=== PATIENT | female | born 1980 | race Caucasian/White ===

== ENCOUNTER 2016-04-13 05:10 | Emergency (ER) | payer OTHER ==
--- NOTE | 2016-04-13 07:24 | DIAGNOSTIC IMAGING REPORT ---
PROCEDURE: XR CHEST 2 VIEW INDICATION: FEVER TECHNIQUE: PA and lateral views. COMPARISON: None. FINDINGS: Allowing for overlying wires and electrodes, there are moderate increased parenchymal changes in the right perihilar region. Left lung is clear. Heart and mediastinum are normal. There is a marked levoscoliosis of the lumbar spine with mild compensatory dextroscoliosis of the thoracic spine. IMPRESSION: 1. Moderate increase parenchymal change right perihilar region compatible with pneumonia (e.g., aspiration, bacterial, Mycoplasma). 2. Marked levoscoliosis of the lumbar spine with mild compensatory dextroscoliosis of the thoracic spine. 3. Findings discussed with Dr. Tai.
--- NOTE | 2016-04-13 07:24 | ED NURSING NOTES ---
Clinical Report - Nurses [facility] [address] [place] [address] 04/13/2016 5:12 Patient: NED BALTAZAR TRIAGE Triage time 05:23. Acuity: LEVEL 3. Chief Complaint: RIGHT-SIDED and LEFT-SIDED FLANK PAIN (Fever). 05:35. Alert. SEPSIS SCREEN: Sepsis Screen: negative. Infection suspected/documented. Temperature greater than 38.3 degrees C (101 degrees F). --05:36 Fred Kuo R.N. 05:23 04/13/16. BP: 112/74. HR: 110. RR: 16. O2 saturation: 98%. Temp: 101 F (oral). Pain level now: 09/13. --05:36 Fred Kuo R.N. Weight: 72.5 kg stated. Height/Length: 64 inches Per Patient. BMI: 27.5. --05:32 Fred Kuo R.N. Medications LamoTRIgine Oral (Tablet Dispersible 100 mg) 1 tablet, daily. --05:28 Fred Kuo R.N. PROzac Oral (Capsule 40 mg) 1 capsule, daily. --05:28 Fred Kuo R.N. Medication/allergy information source: the patient. --05:36 Fred Kuo R.N. Allergies No Known Drug Allergy. --05:31 Fred Kuo R.N. History Arrived by private vehicle. Historian: patient. Unaccompanied. Primary physician (Caden GILMAN). Onset. (2 days ago). ( Patient reports being treated for an UTI, and STD's in Feb, then went to [place] [facility] 20 days since being out has developed bilateral flank pain and a fever - is concerned about sepsis). Treatment BARREL RACER: None. PAST MEDICAL HX: Prior sexually transmitted disease history: gonorrhea, chlamydia and trichomonas. Immunizations: up-to-date. Last normal menstrual period- 7 years ago. Uses an intrauterine device. SOCIAL HX: Smoker- current status unknown. Alcohol use. History of drug use. No infectious disease exposure. ABUSE ASSESSMENT: No report of abuse. FALL RISK ASSESSMENT: Fall risk assessment completed. No fall risk identified. NUTRITIONAL RISK ASSESSMENT: The nutritional risk assessment revealed no deficiencies. FUNCTIONAL ASSESSMENT: Functional assessment: no impairments noted. LEARNING NEEDS ASSESSMENT: The learning needs assessment revealed no barriers. SKIN INTEGRITY ASSESSMENT: Skin integrity risk assessment completed. No skin integrity risk identified. --05:36 Fred Kuo R.N. SOCIAL HX: Current every day heavy tobacco smoker- less than 1 pack per day. Occasional alcohol use. History of heavy drug use: heroin, methamphetamines, marijuana. (Patient states she shot up this AM). --05:58 Fred Kuo R.N. PROBLEMS: Scoliosis. Bipolar Disorder. Depression. --05:32 Fred Kuo R.N. Hepatitis. --06:20 Fred Kuo R.N. ADDITIONAL SURGERIES: . --05:32 Fred Kuo R.N. Interventions ID band on patient. To treatment room. --05:36 Fred Kuo R.N. PHYSICAL ASSESSMENT 05:27. Ambulatory to room. GENERAL / NEURO / PSYCH: Alert. Oriented X 4. HEENT: Mucous membranes are pink. RESPIRATORY: Respirations not labored. SKIN: Skin is warm and dry. --05:27 Fred Kuo R.N. NURSING PROGRESS NOTES 05:27. Head of bed elevated. Two patient identifiers checked. Call light placed in reach. Side rails up x 1. Bed placed in lowest position. Brakes of bed on. Patient ready for evaluation- chart flagged. --05:27 Fred Kuo R.N. 05:36 Patient to restroom to provide urine sample. --05:38 Fred Kuo R.N. 06:10 04/13/2016 Site #1 started via IV in the right antecubital space with an 20g angiocath; one attempt. Blood drawn: rainbow set. Labeled in the presence of the patient and sent to the lab. Saline lock flushed with 10 mL saline. --06:16 Fred Kuo R.N. 06:12 04/13/2016 Started bag #1 1000 mL IV Fluids IV NS (Saline); at 1000 mL/hr over 30 minute(s) via site #1 via IV pump. Allergies verified and confirmed 5 rights. IV patency established. IV site checked: no pain, redness, or swelling. IV flushed thoroughly pre- and post-medication administration. --06:17 Fred Kuo R.N. 05:38. Patient ID band checked for patient name and birthdate: patient confirmed. Clean catch urine collected with return of yellow-colored clear urine; sample sent to lab for urinalysis and drug screen. Specimen labeled in the presence of the patient. --06:21 Fred Kuo R.N. <<STRICKEN ENTRY-- 06:22. Patient transported to radiology by stretcher with tech. --06:22 Fred Kuo R.N. --END STRIKE>> Correction --06:22 Fred Kuo R.N. 06:22. Patient transported to radiology by wheelchair with tech. --06:22 Fred Kuo R.N. EKG time: (0605 AM). EKG was ordered, performed by a nurse and shown to the ED physician. Patient waiting for admit bed. --06:27 Clarence Del Toro R.N. 06:32 04/13/2016 Ibuprofen PO 200 mg given. Allergies verified and confirmed 5 rights. --06:37 Fred Kuo R.N. 06:37 04/13/2016 Site #1 removed. Catheter intact. Bandaid and bandage applied (Site 1 infiltrated). --06:48 Fred Kuo R.N. 06:45 04/13/2016 Site #2 started via IV in the left antecubital space with an 20g angiocath, with aseptic technique and good blood return; one attempt. Blood drawn: cultures x2. Labeled in the presence of the patient and sent to the lab. Saline lock flushed with 10 mL saline. --06:48 Fred Kuo R.N. 06:47 IV fluids moved to site # 2. --06:48 Fred Kuo R.N. Care transferred and report given (Nicole ARMANDO). --07:04 Fred Kuo R.N. Cardiac rhythm: sinus rhythm. The patient is calm and resting quietly. SKIN: Skin is warm and dry. Skin color within normal limits. --07:34 Fred Kuo R.N. 07:32 04/13/16. BP: 100/65. HR: 89. RR: 16. O2 saturation: 100% on room air. Temp: 99.5 F (oral). --07:34 Fred Kuo R.N. 07:15 04/13/2016 IV Fluids IV NS via IV site #1 Rate Changed: bag #1 250 mL/hr via IV pump. --07:49 Nicole Aquino R.N. 07:35 04/13/2016 Started 2 gm of Vancomycin IVPB in bag #1 540 mL; at 270 mL/hr over 2 hour(s) via site #2 via IV pump. Allergies verified and confirmed 5 rights. IV patency established. IV site checked: no pain, redness, or swelling. IV flushed thoroughly pre- and post-medication administration. --07:35 Fred Kuo R.N. 07:36 04/13/2016 Levaquin (Levofloxacin) PO 750 mg given. Allergies verified and confirmed 5 rights. --07:36 Fred Kuo R.N. ( Introduction to pt on shift change, pt playing video games. Pt alert, cooperative and polite. Monitoring VS. IV site unremarkable. Awaiting Vanco meds from Pharmacy.). --07:49 Nicole Aquino R.N. 07:49 04/13/16. Temp: 99.6 F. --07:49 Nicole Aquino R.N. Call light placed in reach. --07:49 Nicole Aquino R.N. ( H/p forms on chart,). --08:33 Leonela Dial ER Tech1 ( Hospitalist here to see pt. IV site unremarkable.). --09:02 Nicole Aquino R.N. ( Vanc infusing without difficulty.). --09:02 Nicole Aquino R.N. PELVIC EXAM: Pelvic exam performed by ED physician (Dr. Lindsay). Assisted by one nurse (Nicole, RN). Preparation: pelvic tray. Procedure: speculum exam. Specimens collected and sent to lab: GC, chlamydia and wet prep. Status post-procedure: she was stable. Total time of assist / procedure: 15 minutes. --11:02 Nicole Aquino R.N. ( With extensive conversation with patient, Dr. Tai, and Nicole, RN, pt has requested to smoke, informed of hospital policy and offered a Nicotine Patch. Pt refused. Pt stated she wanted to "sneak out and have a smoke". Security informed of pt's risk, pt has an IV in place and has admitted to IV drug use and is being admitted for infection related to IV drug use. Pt is at high risk for using while off the premises. Pt's request denied. Pt stated she didn't like the "other Dr" that came to see her. Dr. Grimes was the Hospitalist. Pt also stated, "I'm just not ready to do this, I can't stay". Pt informed by ER MD and RN of risk of leaving, worsening condition, risk of . Pt says, "I'm not going to ozuna today".). --11:08 Nicole Aquino R.N. 09:35 04/13/2016 Vancomycin IVPB Discontinued: infused. Total amount infused: 500 mL. --11:09 Nicole Aquino R.N. 09:35 04/13/2016 IV Fluids IV NS Discontinued: bag #1 infused. Total amount infused: 1000 mL. IV patency established. IV site checked: no pain, redness, or swelling. IV flushed thoroughly. --11: Nicole Aquino R.N. 11:08 04/13/2016 Site #2 removed upon discharge. Pressure dressing applied. --11:08 Nicole Aquino R.N. DISPOSITION / DISCHARGE The patient left the Emergency Department against medical advice and without completion of treatment. The patient appears to be alert, oriented x4 and coherent. She notified the ED staff prior to leaving the department and stated is leaving the ED due to personal reasons. Notified the ED physician and charge nurse of patient departure. Prior to leaving the ED, she was advised to stay for completion of treatment and return if needed. She was informed of the risks of leaving and verbalized understanding of these risks. Patient signed form prior to leaving. She left the Emergency Department ambulatory and via bus. --11:10 Nicole Aquino R.N. Departure time: 10:40 Apr 13 2016. --11:10 Nicole Aquino R.N. Locked/Released at 04/13/2016 11:11 by Nicole Aquino R.N.
--- NOTE | 2016-04-13 07:24 | ED ORDER SUMMARY ---
..... Patient: NED BALTAZAR OrderSheet [facility] VisitID: [id number] [address] [place] [address] 36y, F Registration Date/Time: 04/13/2016 ORDER SHEET Weight: 72.5 kg (stated) Allergies: No Known Drug Allergy GENERAL ORDERS: UA-Culture if indicated Urgent (05:04/13/2016 PHutchinson DO) (Ack 5:30 CHategekimana) (6:17 JQuivey R.N.) Urine Urgent (05:04/13/2016 PHutchinson DO) (Ack 5:30 CHategekimana) (6:17 JQuivey R.N.) Urine Drug Screen Urgent ([facility]2016 [facility] (Ack 5:50 CHategekimana) (6:17 JQuivey R.N.) Chest 2V Urgent (05:04/13/2016 PHncchinson DO) (Ack 5:51 CHategekimana) (6:54 GUnger) Yard Rigger (Continuous) (05:04/13/2016 [facility]) (Ack 5:50 CHategekimana) (6:17 JQuivey R.N.) Blood Culture (No) (N/A) Urgent (05:04/13/2016 PHutchinson DO) (Ack 5:51 CHategekimana) (6:18 JQuivey R.N.) GC/Chlamydia, Urine (Urine, Clean Catch) (dirty catch) Urgent (05:33 04/13/2016 PHutchinson DO) (Ack 5:51 CHategekimana) (6:18 JQuivey R.N.) Cardiac Panel Stat (05:04/13/2016 PHncchinson DO) (Ack 5:50 CHategekimana) (6:17 JQuivey R.N.) BNP Urgent (05:04/13/2016 PHncchinson DO) (Ack 5:50 CHategekimana) (6:17 JQuivey R.N.) Amylase [facility] (Ack 5:50 CHategekimana) (6:17 JQuivey R.N.) PT with INR Urgent (05:34 04/13/2016 [facility] DO) (Ack 5:50 CHategekimana) (6:17 JQuivey R.N.) TSH Urgent (05:04/13/[facility] (Ack 5:51 CHategekimana) (6:17 JQuivey R.N.) ESR Urgent (05:04/13/2016 [facility] DO) (Ack 5:51 CHategekimana) (6:17 JQuivey R.N.) CRP Urgent (05:04/13/2016 [facility] DO) (Ack 5:51 CHategekimana) (6:18 JQuivey R.N.) Pulse oximeter (05:04/13/2016 [facility] ) (Ack 5:50 CHategekimana) (6:17 JQuivey R.N.) EKG - ER Stat (05:04/13/2016 [facility] DO) (Ack 5:50 CHategekimana) (6:17 JQuivey R.N.) Vitals (05:04/13/2016 [facility] DO) (5:40 JQuivey R.N.) Old Records (from [facility]) (05:35 04/13/2016 [facility] DO) (Ack 5:51 CHategekimana) (8:12 LNations ER Tech1) Call (Place call to): (hospitalist) (07:24 04/13/2016 [facility] DO) (8:38 LNations ER Tech1) GC/Chlamydia (Cervix) (cervical) Urgent (09:32 04/13/2016 [facility] DO) (Ack 10:23 LNations ER Tech1) Wet Prep (Vaginal) (vaginal ) Urgent (09:32 04/13/2016 [facility] DO) (Ack 10:23 LNations ER Tech1) MEDICATION ORDERS: Ibuprofen PO 200 mg (NOW) (06:25 04/13/2016 [facility]) (Ack 6:26 JQuivey R.N.) (6:37 JQuivey R.N.) Levaquin PO 750 mg (NOW) (07:23 04/13/2016 [facility]) (7:36 JQuivey R.N.) IV FLUIDS: IV NS : initial bolus 500 mL (1000 mL/hr), then 250 mL/hr for X4 (NOW) (05:33 04/13/2016 [facility]) (6:17 JQuivey R.N.) Vancomycin IV 2 gm/500 mL (after blood cultues) (06:25 04/13/2016 [facility]) (Ack 6:26 JQuivey R.N.) (7:35 JQuivey R.N.) ORDER SHEET NOTES: [Electronically signed by Nicole Aquino R.N. (11:11 04/13/2016)] [Electronically signed by Sage Tai DO (07:26 04/14/2016)] [Electronically locked/signed by Nicole Aquino R.N. (11:11 04/13/2016)]
--- NOTE | 2016-04-13 07:24 | ED ORDER SUMMARY ---
..... Patient: NED BALTAZAR OrderSheet [facility] VisitID: [id number] [address] [place] [address] 36y, F Registration Date/Time: 04/13/2016 ORDER SHEET Weight: 72.5 kg (stated) Allergies: No Known Drug Allergy GENERAL ORDERS: UA-Culture if indicated Urgent (05:04/13/2016 PHutchinson DO) (Ack 5:30 CHategekimana) (6:17 JQuivey R.N.) Urine Urgent (05:04/13/2016 PHutchinson DO) (Ack 5:30 CHategekimana) (6:17 JQuivey R.N.) Urine Drug Screen Urgent (05:04[facility]13/2016 [facility] (Ack 5:50 CHategekimana) (6:17 JQuivey R.N.) Chest 2V Urgent (05:04/13/2016 PHnechinson DO) (Ack 5:51 CHategekimana) (6:54 GUnger) Institutional Research Director (Continuous) (05:04/13/2016 [facility]) (Ack 5:50 CHategekimana) (6:17 JQuivey R.N.) Blood Culture (No) (N/A) Urgent (05:04/13/2016 PHutchinson DO) (Ack 5:51 CHategekimana) (6:18 JQuivey R.N.) GC/Chlamydia, Urine (Urine, Clean Catch) (dirty catch) Urgent (05:33 04/13/2016 PHutchinson DO) (Ack 5:51 CHategekimana) (6:18 JQuivey R.N.) Cardiac Panel Stat (05:04/13/2016 PHnechinson DO) (Ack 5:50 CHategekimana) (6:17 JQuivey R.N.) BNP Urgent (05:04/13/2016 PHnechinson DO) (Ack 5:50 CHategekimana) (6:17 JQuivey R.N.) Amylase Urgent (05:04/13/2016 [facility]) (Ack 5:50 CHategekimana) (6:17 JQuivey R.N.) PT with INR Urgent (05:34 04/13/2016 [facility] DO) (Ack 5:50 CHategekimana) (6:17 JQuivey R.N.) TSH Urgent (05:04/13/2016 [facility] DO) (Ack 5:51 CHategekimana) (6:17 JQuivey R.N.) ESR Urgent (05:04/13/2016 [facility] DO) (Ack 5:51 CHategekimana) (6:17 JQuivey R.N.) CRP Urgent (05:04/13/2016 [facility] DO) (Ack 5:51 CHategekimana) (6:18 JQuivey R.N.) Pulse oximeter (05:04/13/2016 [facility] ) (Ack 5:50 CHategekimana) (6:17 JQuivey R.N.) EKG - ER Stat (05:04/13/2016 [facility] DO) (Ack 5:50 CHategekimana) (6:17 JQuivey R.N.) Vitals (05:04/13/2016 [facility] DO) (5:40 JQuivey R.N.) Old Records (from [facility]) (05:35 04/13/2016 [facility] DO) (Ack 5:51 CHategekimana) (8:12 LNations ER Tech1) Call (Place call to): (hospitalist) (07:24 04/13/2016 [facility] DO) (8:38 LNations ER Tech1) GC/Chlamydia (Cervix) (cervical) Urgent (09:32 04/13/2016 [facility] DO) (Ack 10:23 LNations ER Tech1) Wet Prep (Vaginal) (vaginal ) Urgent (09:32 04/13/2016 [facility] DO) (Ack 10:23 LNations ER Tech1) MEDICATION ORDERS: Ibuprofen PO 200 mg (NOW) (06:25 04/13/2016 [facility]) (Ack 6:26 JQuivey R.N.) (6:37 JQuivey R.N.) Levaquin PO 750 mg (NOW) (07:23 04/13/2016 [facility]) (7:36 JQuivey R.N.) IV FLUIDS: IV NS : initial bolus 500 mL (1000 mL/hr), then 250 mL/hr for X4 (NOW) (05:33 04/13/2016 [facility]) (6:17 JQuivey R.N.) Vancomycin IV 2 gm/500 mL (after blood cultues) (06:25 04/13/2016 [facility]) (Ack 6:26 JQuivey R.N.) (7:35 JQuivey R.N.) ORDER SHEET NOTES: [Electronically signed by Nicole Aquino R.N. (11:11 04/13/2016)] [Electronically signed by Sage Tai DO (07:26 04/14/2016)] [Electronically locked/signed by Nicole Aquino R.N. (11:11 04/13/2016)]
--- NOTE | 2016-04-13 07:24 | ED CLINICAL REPORT ---
Clinical Report - Physicians/Mid Levels [facility] [address] [place] [address] 04/13/2016 5:12 Patient: NED BALTAZAR Time Seen: 05:16. Arrived- By private vehicle. Historian- patient. HISTORY OF PRESENT ILLNESS Chief Complaint: DYSURIA. This started about 2 1/2 weeks ago and still present. It was gradual in onset and has been waxing/waning. The symptoms are described as moderate. Modifying factors- worsened by urination. Relieved by rest. The patient has had abdominal pain, pelvic pain, lower back pain, flank pain and a vaginal discharge. She has had pain with urination and urgency of urination. The patient has had urinary frequency. Sexually active. Similar symptoms previously: Recent medical care: The patient was seen recently at another facility in a clinic. ( Pt was given an antibiotic for UTI, GC, Chlamydia and Trichomoniasis - she did not fill her Rx (at least 2 prior Rx's that she did not fill)). REVIEW OF SYSTEMS No vomiting, diarrhea, black stools, sore throat or cough. No difficulty breathing. She has had fever and skin rash located on the face. All systems otherwise negative, except as recorded above. PAST HISTORY See nurses notes. ( PCP: [facility] ([facility])). Sexually transmitted disease: gonorrhea; chlamydia; trichomonas ("got a shot" about 2 weeks ago at at clinic in [place], but did not take the prescribed antibiotics). Type C hepatitis. Scoliosis. Bipolar disorder. Depression. Substance abuse (heroin, methamphetamines) (recently stopped suboxone - per [facility], last Rx was on 02-27-2016 for #10). Surgeries: Adenoidectomy. has been performed twice. Tonsillectomy. Medications: PROzac Oral (Capsule 40 mg) 1 capsule, daily. LamoTRIgine Oral (Tablet Dispersible 100 mg) 1 tablet, daily. Allergies: No Known Drug Allergy. SOCIAL HISTORY Smoker- current status unknown. Occasional alcohol use. Patient is alcoholic. History of IV drug use. Recently (about 1 month ago) released from assisted. FAMILY HISTORY Heart disease in first-degree relative (father); emphysema in grandparent; cancer in grandparent. ADDITIONAL NOTES The nursing notes have been reviewed. PHYSICAL EXAM Vital Signs: 04/13/2016 05:23 BP: 112/74. HR: 110. RR: 16. O2 saturation: 98%. Temp: 101 F. Pain level now: 7/10. Appearance: Alert. Oriented X3. Patient in mild distress. HEENT: Normal external inspection. Eyes: No scleral icterus or pale conjunctivae. ENT: No hearing deficit. Neck: Neck supple. CVS: Heart sounds normal. Respiratory: No respiratory distress. Breath sounds normal. Abdomen: Soft and nontender. Back: Moderate CVA tenderness on the right and left. (+scoliosis). : A moderate amount of white vaginal discharge present. No vaginal bleeding. No herpes-like lesions. Uterus not enlarged. No tenderness with movement of the cervix. Skin: Skin warm and dry. Normal skin color. Normal skin turgor. Extremities: Extremities nontender. No lower extremity edema. Neuro: Oriented X 3. No motor deficit. No sensory deficit. LABS, X-RAYS, AND EKG EKG: EKG time: (06:05). Narrow-complex tachycardia (ventricular rate 100). Sinus tachycardia. Normal MAYLIN. RBBB. Left axis deviation. Non-specific ST segment / T wave abnormalities. The study has been interpreted contemporaneously by me. The EKG appears to be a good tracing. Chest X-ray: (1. Moderate increase parenchymal change right perihilar region compatible with pneumonia (e.g., aspiration, bacterial, Mycoplasma). 2. Marked levoscoliosis of the lumbar spine with mild compensatory dextroscoliosis of the thoracic spine.). Views: PA and lateral. Technique: good. The X-rays were interpreted contemporaneously by me and discussed with the radiologist. Laboratory Tests: UA-Culture if indicated: (DAMARIS: 04/13/2016 05:44) ( MsgRcvd 04/13/2016 06:13) Final results Test Result Flag Units (Reference) URINE COLOR YELLOW URINE APPEARANCE CLEAR URINE GLUCOSE NEGATIVE (NEGATIVE) URINE BILIRUBIN NEGATIVE (NEGATIVE) URINE KETONE TRACE (NEGATIVE) URINE SPECIFIC GRAVITY 1.025 (1.010-1.030) URINE PH 6.0 (5.0-8.0) URINE PROTEIN 1+ (NEGATIVE) URINE UROBILINOGEN 2.0 EU/dL (0.2-1.0) The urobilinogen reagent area may react with interferingsubstances known to react with Arben's reagent such asp-aminosalicylic acid and sulfonamides. Atypical colorreactions may be obtained in the presence of highconcentrations of p-aminobenzoic acid. The absence ofurobilinogen cannot be determined with this test. URINE NITRITE NEGATIVE (NEGATIVE) URINE BLOOD 1+ (NEGATIVE) URINE LEUK ESTERASE POSITIVE (NEGATIVE) URINE RBC 3-5 rbc/hpf (0-1) URINE WBC 3-5 wbc/hpf (0-1) URINE EPITHELIAL CELLS 1-3 EPI/hpf (0-5) URINE BACTERIA MODERATE (2+ TO 3+) (NONE SEEN) URINE COMMENT CULTURE INDICATED URINE CULTURES ARE SET-UP BASED ON THE FOLLOWING CRITERIA:POSITIVE NITRITEPOSITIVE LEUKOCYTE ESTERASEGREATER THAN 10 WHITE BLOOD CELLSMODERATE (2+) OR GREATER BACTERIA Urine: (DAMARIS: 04/13/2016 05:44) ( [facility] 04/13/2016 06:07) Final results Test Result Flag Units (Reference) URINE NEGATIVE CBC w Diff: (DAMARIS: 04/13/2016 06:05) ( [facility] 04/13/2016 06:38) Final results Test Result Flag Units (Reference) WHITE BLOOD COUNT 26.0 *H K/uL (4.5-11.5) CRITICAL RESULTS CALLEDCalled to [facility] 04/13/16 0618Were 2 patient identifiers used? YWas the result read back? Y RED BLOOD COUNT 4.92 M/uL (4.00-5.20) HEMOGLOBIN 13.6 gm/dL (12.0-16.0) HEMATOCRIT 41.4 % (36.0-46.0) MEAN CELL VOLUME 84 fL (80-100) MEAN CORPUSCULAR HGB 28 pg (26-34) MEAN CORPUSCULAR HGB CONC 33 g/dL (31-37) RED CELL DISTRIBUTION WIDTH 12.5 % (11.6-14.8) PLATELET COUNT 291 K/uL (150-400) LYMPH % 8.6 L % (25-40) MONO % 2.5 L % (3-14) GRANULOCYTE % 88.9 (53-90) POLY % 62 % (50-75) BAND % 31 H % (0-8) LYMPH 5 L % (25-40) MONO 2 L % (3-14) EOSINOPHIL % 0 % (0-4) BASOPHIL % 0 % (0-2) METAMYELOCYTE % 0 % (0-1) MYELOCYTE 0 % (0-1) OTHER CELL TYPE 0 ANISOCYTOSIS 1+ SED RATE WESTERGREN 28 H mm/hr (0-20) PT with INR: (DAMARIS: 04/13/2016 06:05) ( [facility] 04/13/2016 06:29) Final results Test Result Flag Units (Reference) INR 1.1 (0.8-1.2) Low Intensity Therapy: INR 1.5-2.0 PT range 18.5-23.1Mod.Intensity Therapy: INR 2.0-3.0 PT range 23.1-31.5High Intensity Therapy: INR 2.5-3.5 PT range 27.4-35.5High Intensity Therapy 2: INR 3.0-4.0 PT range 31.5-39.3 BNP: (DAMARIS: 04/13/2016 06:05) ( [facility] 04/13/2016 06:42) Final results Test Result Flag Units (Reference) B-TYPE NATRIURETIC PEPTIDE < 5.0 L pg/ml (5-100) CHEM 13 PANEL: (DAMARIS: 04/13/2016 06:05) ( [facility] 04/13/2016 06:52) Final results Test Result Flag Units (Reference) GLUCOSE 103 mg/dL (70-110) BUN 14 mg/dL (7-18) CREATININE 0.9 mg/dL (0.6-1.3) Estimated GFR >60 mL/min Estimated GFR- >60 mL/min Note: Persistent reduction over 3 months in eGFR<60 mL/min/1.73 m2 defines CKD. Patients with eGFR values>=60 mL/min/1.73 m2 may also have CKD if evidence ofpersistent proteinuria. Additional information may be foundat www.kidney.org. SODIUM 137 mmol/L (136-145) POTASSIUM 4.2 mmol/L (3.5-5.1) CHLORIDE 99 mmol/L (98-107) CARBON DIOXIDE 26 mmol/L (21-32) CALCIUM 8.9 mg/dL (8.5-10.1) TOTAL PROTEIN 8.0 g/dL (6.4-8.2) ALBUMIN 3.4 g/dL (3.3-5.0) BILIRUBIN, TOTAL 0.3 mg/dL (0.0-1.0) ALKALINE PHOSPHATASE 130 H U/L (46-116) AST (SGOT) 19 U/L (15-37) ALT (SGPT) 18 U/L (12-78) CPK 113 U/L (24-260) MAGNESIUM 1.8 mg/dL (1.8-2.4) AMYLASE 18 L U/L (25-115) TROPONIN I <0.05 L ng/mL (0.00-1.5) TROPONIN REFERENCE RANGE:<0.1 NEGATIVE0.1-1.5 INDETERMINANT>1.5 POSITIVE THYROID STIMULATING HORMONE 2.091 uIU/mL (0.34-3.74) C-REACTIVE PROTEIN 32.1 H mg/dL (0.0-0.9) Urine Drug Screen: (DAMARIS: 04/13/2016 05:44) ( MsgRcvd 04/13/2016 06:21) Final results Test Result Flag Units (Reference) AMPHETAMINE/METHAMPHETAMINE POSITIVE H (NEGATIVE) BARBITURATE NEGATIVE (NEGATIVE) BENZODIAZEPINE NEGATIVE (NEGATIVE) CANNABINOID POSITIVE H (NEGATIVE) COCAINE NEGATIVE (NEGATIVE) ECSTASY POSITIVE H (NEGATIVE) METHADONE NEGATIVE (NEGATIVE) OPIATE POSITIVE H (NEGATIVE) The urine drug screen is a qualitative screening test fordrug overdose and abuse. All screen results should beconsidered as presumptive.Drugs screened for are as follows:BenzodiazepinesCocaineAmphetamines/MetamphetaminesTHC (Tetrahydrocannabinol)OpiatesBarbituratesEcstasyMethadonePositive results are unconfirmed. For confirmation, notifythe lab for the specimen to be sent to the reference lab.All confirmations must be performed by a differentmethodology.The ingestion of natural herbal and plant productscontaining Ephedra/Ephedra metabolites can produce in urineone or more substances capable of cross reacting withamphetamine/methamphetamine immunoassays. These testsprovide a preliminary result only. A more specificalternative chemical method must be used to obtain aconfirmed analytical result. . Pulse Oximetry: 04/13/2016 05:23 O2 saturation: 98%. (FIO2 - room air). Interpretation: normal. PROGRESS AND PROCEDURES Course of Care: Normal Saline 2.4 liter IVPB given. Ibuprofen 200 mg PO given. Vancomycin 2 grams IVPB given. Levaquin 750 mg PO given. Pt is injection drug user with a fever and will need to be admitted. Patient/family counseled. Old medical records ordered. ([facility] (no prior visits to [facility])). Disposition: Discharged. Condition: stable and improved. CLINICAL IMPRESSION Acute fever (with a history of injection drug use). Bacterial pneumonia with sepsis. Vital signs recorded and reviewed. No hypoxemia or respiratory failure. Acute urinary tract infection with cystitis. Recovering substance abuse- tobacco (cigarettes), marijuana, heroin, methamphetamines, ecstasy with drug induced mood disorder. Moderate leukocytosis with bandemia. (Electronically signed by Sage Tai DO 04/14/2016 7:26)
--- NOTE | 2016-04-13 07:24 | ED CLINICAL REPORT ---
Clinical Report - Physicians/Mid Levels [facility] [address] [place] [address] 04/13/2016 5:12 Patient: NED BALTAZAR Time Seen: 05:16. Arrived- By private vehicle. Historian- patient. HISTORY OF PRESENT ILLNESS Chief Complaint: DYSURIA. This started about 2 1/2 weeks ago and still present. It was gradual in onset and has been waxing/waning. The symptoms are described as moderate. Modifying factors- worsened by urination. Relieved by rest. The patient has had abdominal pain, pelvic pain, lower back pain, flank pain and a vaginal discharge. She has had pain with urination and urgency of urination. The patient has had urinary frequency. Sexually active. Similar symptoms previously: Recent medical care: The patient was seen recently at another facility in a clinic. ( Pt was given an antibiotic for UTI, GC, Chlamydia and Trichomoniasis - she did not fill her Rx (at least 2 prior Rx's that she did not fill)). REVIEW OF SYSTEMS No vomiting, diarrhea, black stools, sore throat or cough. No difficulty breathing. She has had fever and skin rash located on the face. All systems otherwise negative, except as recorded above. PAST HISTORY See nurses notes. ( PCP: [facility] ([facility])). Sexually transmitted disease: gonorrhea; chlamydia; trichomonas ("got a shot" about 2 weeks ago at at clinic in [place], but did not take the prescribed antibiotics). Type C hepatitis. Scoliosis. Bipolar disorder. Depression. Substance abuse (heroin, methamphetamines) (recently stopped suboxone - per [facility], last Rx was on 02-27-2016 for #10). Surgeries: Adenoidectomy. has been performed twice. Tonsillectomy. Medications: PROzac Oral (Capsule 40 mg) 1 capsule, daily. LamoTRIgine Oral (Tablet Dispersible 100 mg) 1 tablet, daily. Allergies: No Known Drug Allergy. SOCIAL HISTORY Smoker- current status unknown. Occasional alcohol use. Patient is alcoholic. History of IV drug use. [facility] (about 1 month ago) [facility] FAMILY HISTORY Heart disease in first-degree relative (father); emphysema in grandparent; cancer in grandparent. ADDITIONAL NOTES The nursing notes have been reviewed. PHYSICAL EXAM Vital Signs: 04/13/2016 05:23 BP: 112/74. HR: 110. RR: 16. O2 saturation: 98%. Temp: 101 F. Pain level now: 7/10. Appearance: Alert. Oriented X3. Patient in mild distress. HEENT: Normal external inspection. Eyes: No scleral icterus or pale conjunctivae. ENT: No hearing deficit. Neck: Neck supple. CVS: Heart sounds normal. Respiratory: No respiratory distress. Breath sounds normal. Abdomen: Soft and nontender. Back: Moderate CVA tenderness on the right and left. (+scoliosis). : A moderate amount of white vaginal discharge present. No vaginal bleeding. No herpes-like lesions. Uterus not enlarged. No tenderness with movement of the cervix. Skin: Skin warm and dry. Normal skin color. Normal skin turgor. Extremities: Extremities nontender. No lower extremity edema. Neuro: Oriented X 3. No motor deficit. No sensory deficit. LABS, X-RAYS, AND EKG EKG: EKG time: (06:05). Narrow-complex tachycardia (ventricular rate 100). Sinus tachycardia. Normal MAYLIN. RBBB. Left axis deviation. Non-specific ST segment / T wave abnormalities. The study has been interpreted contemporaneously by me. The EKG appears to be a good tracing. Chest X-ray: (1. Moderate increase parenchymal change right perihilar region compatible with pneumonia (e.g., aspiration, bacterial, Mycoplasma). 2. Marked levoscoliosis of the lumbar spine with mild compensatory dextroscoliosis of the thoracic spine.). Views: PA and lateral. Technique: good. The X-rays were interpreted contemporaneously by me and discussed with the radiologist. Laboratory Tests: UA-Culture if indicated: (DAMARIS: 04/13/2016 05:44) ( MsgRcvd 04/13/2016 06:13) Final results Test Result Flag Units (Reference) URINE COLOR YELLOW URINE APPEARANCE CLEAR URINE GLUCOSE NEGATIVE (NEGATIVE) URINE BILIRUBIN NEGATIVE (NEGATIVE) URINE KETONE TRACE (NEGATIVE) URINE SPECIFIC GRAVITY 1.025 (1.010-1.030) URINE PH 6.0 (5.0-8.0) URINE PROTEIN 1+ (NEGATIVE) URINE UROBILINOGEN 2.0 EU/dL (0.2-1.0) The urobilinogen reagent area may react with interferingsubstances known to react with Arben's reagent such asp-aminosalicylic acid and sulfonamides. Atypical colorreactions may be obtained in the presence of highconcentrations of p-aminobenzoic acid. The absence ofurobilinogen cannot be determined with this test. URINE NITRITE NEGATIVE (NEGATIVE) URINE BLOOD 1+ (NEGATIVE) URINE LEUK ESTERASE POSITIVE (NEGATIVE) URINE RBC 3-5 rbc/hpf (0-1) URINE WBC 3-5 wbc/hpf (0-1) URINE EPITHELIAL CELLS 1-3 EPI/hpf (0-5) URINE BACTERIA MODERATE (2+ TO 3+) (NONE SEEN) URINE COMMENT CULTURE INDICATED URINE CULTURES ARE SET-UP BASED ON THE FOLLOWING CRITERIA:POSITIVE NITRITEPOSITIVE LEUKOCYTE ESTERASEGREATER THAN 10 WHITE BLOOD CELLSMODERATE (2+) OR GREATER BACTERIA Urine: (DAMARIS: 04/13/2016 05:44) ( [facility] 04/13/2016 06:07) Final results Test Result Flag Units (Reference) URINE NEGATIVE CBC w Diff: (DAMARIS: 04/13/2016 06:05) ( [facility] 04/13/2016 06:38) Final results Test Result Flag Units (Reference) WHITE BLOOD COUNT 26.0 *H K/uL (4.5-11.5) CRITICAL RESULTS CALLEDCalled to [facility] 04/13/16 0618Were 2 patient identifiers used? YWas the result read back? Y RED BLOOD COUNT 4.92 M/uL (4.00-5.20) HEMOGLOBIN 13.6 gm/dL (12.0-16.0) HEMATOCRIT 41.4 % (36.0-46.0) MEAN CELL VOLUME 84 fL (80-100) MEAN CORPUSCULAR HGB 28 pg (26-34) MEAN CORPUSCULAR HGB CONC 33 g/dL (31-37) RED CELL DISTRIBUTION WIDTH 12.5 % (11.6-14.8) PLATELET COUNT 291 K/uL (150-400) LYMPH % 8.6 L % (25-40) MONO % 2.5 L % (3-14) GRANULOCYTE % 88.9 (53-90) POLY % 62 % (50-75) BAND % 31 H % (0-8) LYMPH 5 L % (25-40) MONO 2 L % (3-14) EOSINOPHIL % 0 % (0-4) BASOPHIL % 0 % (0-2) METAMYELOCYTE % 0 % (0-1) MYELOCYTE 0 % (0-1) OTHER CELL TYPE 0 ANISOCYTOSIS 1+ SED RATE WESTERGREN 28 H mm/hr (0-20) PT with INR: (DAMARIS: 04/13/2016 06:05) ( [facility] 04/13/2016 06:29) Final results Test Result Flag Units (Reference) INR 1.1 (0.8-1.2) Low Intensity Therapy: INR 1.5-2.0 PT range 18.5-23.1Mod.Intensity Therapy: INR 2.0-3.0 PT range 23.1-31.5High Intensity Therapy: INR 2.5-3.5 PT range 27.4-35.5High Intensity Therapy 2: INR 3.0-4.0 PT range 31.5-39.3 BNP: (DAMARIS: 04/13/2016 06:05) ( [facility] 04/13/2016 06:42) Final results Test Result Flag Units (Reference) B-TYPE NATRIURETIC PEPTIDE < 5.0 L pg/ml (5-100) CHEM 13 PANEL: (DAMARIS: 04/13/2016 06:05) ( [facility] 04/13/2016 06:52) Final results Test Result Flag Units (Reference) GLUCOSE 103 mg/dL (70-110) BUN 14 mg/dL (7-18) CREATININE 0.9 mg/dL (0.6-1.3) Estimated GFR >60 mL/min Estimated GFR- >60 mL/min Note: Persistent reduction over 3 months in eGFR<60 mL/min/1.73 m2 defines CKD. Patients with eGFR values>=60 mL/min/1.73 m2 may also have CKD if evidence ofpersistent proteinuria. Additional information may be foundat www.kidney.org. SODIUM 137 mmol/L (136-145) POTASSIUM 4.2 mmol/L (3.5-5.1) CHLORIDE 99 mmol/L (98-107) CARBON DIOXIDE 26 mmol/L (21-32) CALCIUM 8.9 mg/dL (8.5-10.1) TOTAL PROTEIN 8.0 g/dL (6.4-8.2) ALBUMIN 3.4 g/dL (3.3-5.0) BILIRUBIN, TOTAL 0.3 mg/dL (0.0-1.0) ALKALINE PHOSPHATASE 130 H U/L (46-116) AST (SGOT) 19 U/L (15-37) ALT (SGPT) 18 U/L (12-78) CPK 113 U/L (24-260) MAGNESIUM 1.8 mg/dL (1.8-2.4) AMYLASE 18 L U/L (25-115) TROPONIN I <0.05 L ng/mL (0.00-1.5) TROPONIN REFERENCE RANGE:<0.1 NEGATIVE0.1-1.5 INDETERMINANT>1.5 POSITIVE THYROID STIMULATING HORMONE 2.091 uIU/mL (0.34-3.74) C-REACTIVE PROTEIN 32.1 H mg/dL (0.0-0.9) Urine Drug Screen: (DAMARIS: 04/13/2016 05:44) ( MsgRcvd 04/13/2016 06:21) Final results Test Result Flag Units (Reference) AMPHETAMINE/METHAMPHETAMINE POSITIVE H (NEGATIVE) BARBITURATE NEGATIVE (NEGATIVE) BENZODIAZEPINE NEGATIVE (NEGATIVE) CANNABINOID POSITIVE H (NEGATIVE) COCAINE NEGATIVE (NEGATIVE) ECSTASY POSITIVE H (NEGATIVE) METHADONE NEGATIVE (NEGATIVE) OPIATE POSITIVE H (NEGATIVE) The urine drug screen is a qualitative screening test fordrug overdose and abuse. All screen results should beconsidered as presumptive.Drugs screened for are as follows:BenzodiazepinesCocaineAmphetamines/MetamphetaminesTHC (Tetrahydrocannabinol)OpiatesBarbituratesEcstasyMethadonePositive results are unconfirmed. For confirmation, notifythe lab for the specimen to be sent to the reference lab.All confirmations must be performed by a differentmethodology.The ingestion of natural herbal and plant productscontaining Ephedra/Ephedra metabolites can produce in urineone or more substances capable of cross reacting withamphetamine/methamphetamine immunoassays. These testsprovide a preliminary result only. A more specificalternative chemical method must be used to obtain aconfirmed analytical result. . Pulse Oximetry: 04/13/2016 05:23 O2 saturation: 98%. (FIO2 - room air). Interpretation: normal. PROGRESS AND PROCEDURES Course of Care: Normal Saline 2.4 liter IVPB given. Ibuprofen 200 mg PO given. Vancomycin 2 grams IVPB given. Levaquin 750 mg PO given. Pt is injection drug user with a fever and will need to be admitted. Patient/family counseled. Old medical records ordered. ([facility] (no prior visits to [facility])). Disposition: Discharged. Condition: stable and improved. CLINICAL IMPRESSION Acute fever (with a history of injection drug use). Bacterial pneumonia with sepsis. Vital signs recorded and reviewed. No hypoxemia or respiratory failure. Acute urinary tract infection with cystitis. Recovering substance abuse- tobacco (cigarettes), marijuana, heroin, methamphetamines, ecstasy with drug induced mood disorder. Moderate leukocytosis with bandemia. (Electronically signed by Sage Tai DO 04/14/2016 7:26)
[2016-04-13] MEDS ORDERED: PROZAC20 MG PO (09:25)
[2016-04-13] MEDS ORDERED: LAMICTAL100 MG PO (09:25)
--- NOTE | 2016-04-14 07:26 | ED MAR SUMMARY ---
..... Medication Administration Record [facility] [address] [place] [address] Patient: NED BALTAZAR Visit ID: [id number] 36y, F Weight: 72.5 kg Height/Length: 64 in BMI: 27.5 ALLERGIES: No Known Drug Allergy Start 06:12 04/13/2016 Fred Kuo R.N., Stop 09:35 04/13/2016 Nicole Aquino R.N. Medication Administered: IV NS (SALINE), Dose: IV Fluids over 30 minute(s), Rate: 1000 mL/hr, Dispensed: 1000 mL bag, Site: #1 right AC. Medication Ordered: IV NS : initial bolus 500 mL (1000 mL/hr), then 250 mL/hr for X4 (NOW). Given 06:32 04/13/2016 Fred Kuo R.N. Medication Administered: IBUPROFEN [PO], Dose: 200 mg PO. Medication Ordered: Ibuprofen PO 200 mg (NOW). Start 07:35 04/13/2016 Fred Kuo R.N., Stop 09:35 04/13/2016 Nicole Aquino R.N. Medication Administered: VANCOMYCIN [IVPB], Dose: 2 gm IVPB over 2 hour(s), Rate: 270 mL/hr, Dispensed: 540 mL bag, Site: #2 left AC. Medication Ordered: Vancomycin IV 2 gm/500 mL (after blood cultues). Given 07:36 04/13/2016 Fred Kuo R.N. Medication Administered: LEVAQUIN [PO] (LEVOFLOXACIN), Dose: 750 mg PO. Medication Ordered: Levaquin PO 750 mg (NOW).
--- NOTE | 2016-04-14 07:26 | ED MED RECONCILIATION SUMMARY ---
Patient: NED BALTAZAR Medication Reconciliation Report [facility] VisitID: [id number] [address] [place] [address] 36y, F Registration Date/Time: 04/13/2016 Weight: 72.5 kg Height/Length: 64 in. BMI: 27.5 ALLERGIES: No Known Drug Allergy The patient's Home Medications are listed below: THE FOLLOWING MEDICATIONS NEED TO BE RECONCILED: LamoTRIgine Oral (100 mg) 1 tablet, daily PROzac Oral (40 mg) 1 capsule, daily The source(s) of the original Home Medication information: patient The following Medications were given to the patient in the Emergency Department: IV NS IV Fluids bolus 0, then 1000 mL/hr, administered: 04/13/2016 6:12:00 AM Ibuprofen [PO] PO 200 mg, administered: 04/13/2016 6:32:00 AM Vancomycin [IVPB] IVPB bolus 0, then 2 gm 270 mL/hr, administered: 04/13/2016 7:35:00 AM Levaquin [PO] PO 750 mg, administered: 04/13/2016 7:36:00 AM The following Medications were prescribed to the patient: None.
--- NOTE | 2016-04-14 07:26 | ED DISCHARGE INSTRUCTIONS ---
Patient: NED BALTAZAR General Instructions [facility] VisitID: [id number] [address] [place] [address] 36y, F Registration Date/Time: 04/13/2016 Acute fever (with a history of injection drug use). Bacterial pneumonia with sepsis. Vital signs recorded and reviewed. No hypoxemia or respiratory failure. Acute urinary tract infection with cystitis. Recovering substance abuse- tobacco (cigarettes), marijuana, heroin, methamphetamines, ecstasy with drug induced mood disorder. Moderate leukocytosis with bandemia. (Electronically signed by Sage Tai DO 04/14/2016 7:26)
--- NOTE | 2016-04-14 07:26 | ED DISCHARGE INSTRUCTIONS ---
Patient: NED BALTAZAR General Instructions [facility] VisitID: [id number] [address] [place] [address] 36y, F Registration Date/Time: 04/13/2016 Acute fever (with a history of injection drug use). Bacterial pneumonia with sepsis. Vital signs recorded and reviewed. No hypoxemia or respiratory failure. Acute urinary tract infection with cystitis. Recovering substance abuse- tobacco (cigarettes), marijuana, heroin, methamphetamines, ecstasy with drug induced mood disorder. Moderate leukocytosis with bandemia. (Electronically signed by Sage Tai DO 04/14/2016 7:26)
--- NOTE | 2016-04-14 07:26 | ED MED RECONCILIATION SUMMARY ---
Patient: NED BALTAZAR Medication Reconciliation Report [facility] VisitID: [id number] [address] [place] [address] 36y, F Registration Date/Time: 04/13/2016 Weight: 72.5 kg Height/Length: 64 in. BMI: 27.5 ALLERGIES: No Known Drug Allergy The patient's Home Medications are listed below: THE FOLLOWING MEDICATIONS NEED TO BE RECONCILED: LamoTRIgine Oral (100 mg) 1 tablet, daily PROzac Oral (40 mg) 1 capsule, daily The source(s) of the original Home Medication information: patient The following Medications were given to the patient in the Emergency Department: IV NS IV Fluids bolus 0, then 1000 mL/hr, administered: 04/13/2016 6:12:00 AM Ibuprofen [PO] PO 200 mg, administered: 04/13/2016 6:32:00 AM Vancomycin [IVPB] IVPB bolus 0, then 2 gm 270 mL/hr, administered: 04/13/2016 7:35:00 AM Levaquin [PO] PO 750 mg, administered: 04/13/2016 7:36:00 AM The following Medications were prescribed to the patient: None.
--- NOTE | 2016-04-14 07:26 | ED MAR SUMMARY ---
..... Medication Administration Record [facility] [address] [place] [address] Patient: NED BALTAZAR Visit ID: [id number] 36y, F Weight: 72.5 kg Height/Length: 64 in BMI: 27.5 ALLERGIES: No Known Drug Allergy Start 06:12 04/13/2016 Fred Kuo R.N., Stop 09:35 04/13/2016 Nicole Aquino R.N. Medication Administered: IV NS (SALINE), Dose: IV Fluids over 30 minute(s), Rate: 1000 mL/hr, Dispensed: 1000 mL bag, Site: #1 right AC. Medication Ordered: IV NS : initial bolus 500 mL (1000 mL/hr), then 250 mL/hr for X4 (NOW). Given 06:32 04/13/2016 Fred Kuo R.N. Medication Administered: IBUPROFEN [PO], Dose: 200 mg PO. Medication Ordered: Ibuprofen PO 200 mg (NOW). Start 07:35 04/13/2016 Fred Kuo R.N., Stop 09:35 04/13/2016 Nicole Aquino R.N. Medication Administered: VANCOMYCIN [IVPB], Dose: 2 gm IVPB over 2 hour(s), Rate: 270 mL/hr, Dispensed: 540 mL bag, Site: #2 left AC. Medication Ordered: Vancomycin IV 2 gm/500 mL (after blood cultues). Given 07:36 04/13/2016 Fred Kuo R.N. Medication Administered: LEVAQUIN [PO] (LEVOFLOXACIN), Dose: 750 mg PO. Medication Ordered: Levaquin PO 750 mg (NOW).
== END 2016-04-13 10:40 | disposition left against medical advice (07) ==
LOC: ED SRH 05:10 → TRANS SRH 08:37 → ED SRH 08:37
DX: A41.9 Sepsis, unspecified organism (principal); J15.9 Unspecified bacterial pneumonia; N30.00 Acute cystitis without hematuria; F17.210 Nicotine dependence, cigarettes, uncomplicated; F12.10 Cannabis abuse, uncomplicated; F11.10 Opioid abuse, uncomplicated; F16.14 Hallucinogen abuse with hallucinogen-induced mood disorder; D72.825 Bandemia
CPT/HCPCS: 90004; 90065; 90100; 90195; 90469; 90616; 91227; 91228; 91320; 91585; 91643; 92530; 92610; 92720; 92760; 92761; 92762; 92763; 92764; 92765; 92766; 92767; 93070; 93140; 94060; 95059; 95150